=== PATIENT | female | born 1985 | race Two or more races ===

== ENCOUNTER 2017-06-17 10:25 | Emergency (ER) | payer MEDICAID ==
[~2017-06-17] VITALS: Ht 162.6 cm; Wt 78.0 kg
[2017-06-17 11:37] VITALS: BP 119/91
[2017-06-17 13:22] LABS: Urine Color Yellow (Yellow)
[2017-06-17 13:23] LABS: Urine Bilirubin Negative (Negative); Urine Blood 2+ /uL (Negative); Urine Glucose Normal (Normal); Urine Ketone Negative (Negative); Urine Nitrite Negative (Negative); Urine Urobilinogen Normal (Negative)
[2017-06-17 13:28] LABS: Urine RBC 75 /hpf (0 - 4)
[2017-06-17 13:29] LABS: Urine Squamous Epithelial Cell FEW /hpf (<5)
== END 2017-06-17 11:46 | disposition left against medical advice (07) ==
LOC: ER 10:25
DX: N93.9 Abnormal uterine and vaginal bleeding, unspecified (principal); Z53.21 Procedure and treatment not carried out due to patient leaving prior to being seen by health care provider
CPT/HCPCS: 36415; 81001; 84702